=== PATIENT | male | born 2000 | race Caucasian/White ===

== ENCOUNTER 2022-09-03 20:12 | Emergency (ER) | payer OTHER ==
[2022-09-03 20:25] VITALS: BP 136/93; PULSE 87; RESP 18; TEMP 98.6
[2022-09-03] MEDS ORDERED: DIPH,PERTUS(ACELL)TETVAC-LF 0.5 ML VIAL IM ONE (20:30)
[2022-09-03] MEDS ORDERED: ACETAMINOPHEN TAB 325 MG TAB PO STA (20:35)
--- NOTE | 2022-09-03 20:42 | ED ---
General Adult HPI - General Chief complaint: Burn/Smoke Inhalation Stated complaint: lt finger burn/ [facility] Time Seen by Provider: 09/03/22 20:29 Source: patient, RN notes reviewed, old records reviewed Mode of arrival: ambulatory Limitations: no limitations - History of Present Illness Initial comments: This is a well-appearing 22-year-old male that presents to the emergency room with complaints of a thermal burn to his second third and fourth finger pads of left hand on a hot plate while at work today. Patient states that he did put burn gel and bandages on prior to coming to the emergency room. Denies any other injuries. Unsure of tetanus shot is up-to-date. No medical history. -: hour(s) Location: left, upper extremity (Second third and fourth finger pads) Severity scale (1-10): 7 Quality: burning Consistency: intermittent Improves with: medication (Bandages burn gel) Worsens with: other (Palpation) Associated Symptoms: denies other symptoms Treatments Prior to Arrival: other (Bandages and burn gel) - Related Data Allergies Allergy/AdvReac Type Severity Reaction Status Date / Time No Known Allergies Allergy Verified 09/03/22 20:24 Review of Systems ROS Statement: Those systems with pertinent positive or pertinent negative responses have been documented in the HPI. ROS Other: All systems not noted in ROS Statement are negative. Past Medical History Past Medical History: No Reported History History of Any Multi-Drug Resistant Organisms: None Reported Past Surgical History: No Surgical Hx Reported Past Psychological History: No Psychological Hx Reported Smoking Status: Never smoker Past Alcohol Use History: None Reported Past Drug Use History: None Reported General Exam Limitations: no limitations General appearance: alert, in no apparent distress Head exam: Present: atraumatic Eye exam: Present: normal appearance. Absent: scleral icterus, conjunctival injection, periorbital swelling ENT exam: Present: mucous membranes moist Respiratory exam: Absent: respiratory distress, accessory muscle use Cardiovascular Exam: Present: regular rate Left Hand Wrist exam: Present: full ROM, tenderness (Second third and fourth finger pads), other (No blisters are broken skin noted). Absent: swelling, abrasion, laceration, ecchymosis, deformity, crepitus, dislocation, erythema Neuro motor exam: Present: wrist extension intact, thumb opposition intact, thumb IP flexion intact, thumb adduction intact, fingers 2-5 abduction intact Vascular: Present: normal capillary refill, radial pulse. Absent: vascular compromise Neurological exam: Present: alert, oriented X3 Psychiatric exam: Present: normal affect, normal mood Skin exam: Present: warm, dry, normal color. Absent: cyanosis, diaphoretic, petechiae, pallor Course Vital Signs 09/03/22 20:23 Temperature 98.6 F Pulse Rate 87 Respiratory 18 Rate Blood Pressure 136/93 O2 Sat by Pulse 99 Oximetry Medical Decision Making - Medical Decision Making Patient presents with thermal burn to the second third and fourth finger pads of his left hand after touching a hot plate at work. There is no evidence of erythema or blisters. Patient states he did immediately put burn cream and bandages on. Patient is right-handed. He has full range of motion. He was offered a tetanus shot and declined. There is no evidence of broken skin. He was given Tylenol for discomfort. Directed to watch for signs of infection. Return to the emergency room with any concerning signs. Patient given a work note as requested. Case discussed with Dr. Taveras Disposition Clinical Impression: Burn of finger Disposition: HOME SELF-CARE Condition: Good Instructions (If sedation given, give patient instructions): Acute Wounds (ED) Additional Instructions: Tylenol and or Motrin as needed for any pain. Follow-up with the primary care doctor as needed. Is patient prescribed a controlled substance at d/c from ED?: No Referrals: None,Stated [Primary Care Provider] - 1-2 days Time of Disposition: 20:42
== END 2022-09-03 21:05 | disposition home or self-care (01) ==
LOC: EC 20:12
DX: T23.132A Burn of first degree of multiple left fingers (nail), not including thumb, initial encounter (principal); T31.0 Burns involving less than 10% of body surface
CPT/HCPCS: 16000; 99283